=== PATIENT | male | born 1985 | race Native Hawaiian/Other Pacific Islander ===

== ENCOUNTER 2017-06-24 09:50 | Outpatient (CLI) | payer OTHER ==
[2017-06-24] MEDS ORDERED: BACTRIM1 TAB PO (10:09)
[2017-06-24] MEDS ORDERED: IBUPROFEN IB200 MG PO (10:09)
[2017-06-24] MEDS ORDERED: BENTYL10 MG PO (10:10)
[2017-06-24] MEDS ORDERED: [UNRECOGNIZED DRUG - CODE] PO (10:12)
[2017-06-24] MEDS ORDERED: DIVA250T2 PO (10:12)
[2017-06-24] MEDS ORDERED: VENLAFAXINE150 M1 PO (18:08)
[2017-06-24] MEDS ORDERED: VENLAFAXINE75 M2 PO (18:10)
[2017-06-24] MEDS ORDERED: CREON6000 UNIT OR (18:17)
== END 2017-06-24 09:55 | disposition short-term general hospital (02) ==
LOC: AMB 09:50
DX: M79.604 Pain in right leg (principal)
CPT/HCPCS: A0425; A0429

== ENCOUNTER 2017-06-24 09:55 | Inpatient (IN) | payer OTHER ==
[~2017-06-24] VITALS: Ht 177.8 cm; Wt 108.6 kg
[2017-06-24] VITALS (10 sets, daily range): BP systolic 95–146; BP diastolic 56–95; TEMP 97.9–98.8; Ht 177.8 cm; Wt 108.6 kg
[2017-06-24] MEDS ORDERED: BACTRIM1 TAB PO (10:09)
[2017-06-24] MEDS ORDERED: IBUPROFEN IB200 MG PO (10:09)
[2017-06-24] MEDS ORDERED: BENTYL10 MG PO (10:10)
[2017-06-24] MEDS ORDERED: [UNRECOGNIZED DRUG - CODE] PO (10:12)
[2017-06-24] MEDS ORDERED: DIVA250T2 PO (10:12)
[2017-06-24 11:12] LABS: PLATELET COUNT 386 K/uL (142-355)
[2017-06-24 11:20] LABS: POTASSIUM 4.2 mmol/L (3.6-5.2); SODIUM 134 mmol/L (136-145)
[2017-06-24] MEDS ORDERED: VENLAFAXINE150 M1 PO (18:08)
[2017-06-24] MEDS ORDERED: VENLAFAXINE75 M2 PO (18:10)
[2017-06-24] MEDS ORDERED: CREON6000 UNIT OR (18:17)
[2017-06-25] VITALS (15 sets, daily range): BP systolic 99–120; BP diastolic 45–77; TEMP 98–98.6
[2017-06-25 06:10] LABS: PLATELET COUNT 335 K/uL (142-355)
[2017-06-25 06:22] LABS: POTASSIUM 4.2 mmol/L (3.6-5.2); SODIUM 140 mmol/L (136-145)
[2017-06-26] VITALS: BP 118/61; TEMP 98
[2017-06-26 04:00] VITALS: BP 118/80; TEMP 97.7
[2017-06-26 05:40] LABS: PLATELET COUNT 315 K/uL (142-355)
[2017-06-26 05:51] LABS: SODIUM 139 mmol/L (136-145)
[2017-06-26 08:00] VITALS: BP 150/57; TEMP 97.6
== END 2017-06-26 12:50 | DRG 638 ==
LOC: ED 09:55 → ICU 14:00 → MED/SURG 06-25 13:30
PROVIDERS: ADMIT Emergency Medicine
DX: E11.00 Type 2 diabetes mellitus with hyperosmolarity without nonketotic hyperglycemic-hyperosmolar coma (NKHHC) (principal); G40.802 Other epilepsy, not intractable, without status epilepticus; L03.115 Cellulitis of right lower limb; I10 Essential (primary) hypertension; Z89.511 Acquired absence of right leg below knee; L98.8 Other specified disorders of the skin and subcutaneous tissue; B95.62 Methicillin resistant Staphylococcus aureus infection as the cause of diseases classified elsewhere
CPT/HCPCS: 36415; 80053; 80164; 81000; 82150; 82948; 82962; 83036; 83605; 83690; 83735; 85027; 87070; 87077; 87185; 87186; 87205; 96372; 99284; J1815; J2405